=== PATIENT | female | born 1965 | race Caucasian/White ===

== ENCOUNTER → 2020-10-02 09:48 | Outpatient (BNVA) | payer OTHER, SELFPAY | PROVIDERS: Family Provider Family Medicine; PCP Nurse Practitioner Family; Visit Provider Internal Medicine | DX: M35.00 Sjogren syndrome, unspecified (principal); D72.819 Decreased white blood cell count, unspecified; R76.8 Other specified abnormal immunological findings in serum; Z11.1 Encounter for screening for respiratory tuberculosis; Z11.59 Encounter for screening for other viral diseases; R53.83 Other fatigue; G47.00 Insomnia, unspecified; F41.9 Anxiety disorder, unspecified; F48.8 Other specified nonpsychotic mental disorders; I73.9 Peripheral vascular disease, unspecified; F17.210 Nicotine dependence, cigarettes, uncomplicated | CPT/HCPCS: 99204 ==

== ENCOUNTER 2020-10-02 11:50 | Outpatient (CLI) | payer OTHER, BC, SELFPAY ==
--- NOTE | 2020-10-02 12:12 | XR_ITS ---
WS: [id number] Lumbar spine, 3 views, 10/02/2020 Clinical Data: M06.9 - Rheumatoid arthritis, unspecified Comparison: None. Findings: No compression fractures or subluxation is seen. No disc space narrowing is seen. The transverse proc esses and SI joints are normal. Minimal osteoarthritic spurring of the anterior vertebral bodies L1-L 5 is seen. There is a large amount of fecal material in the colon. There are clips in the left inguinal region f rom surgery. 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
--- NOTE | 2020-10-02 12:12 | XR_ITS ---
WS: [id number] Lateral views of cervical spine in the flexion, extension and neutral positions. 10/02/2020 Clinical Data: M06.9 - Rheumatoid arthritis, unspecified Comparison: None. Findings: No prevertebral soft tissue swelling is seen. The disc heights are normal. There are no compression f ractures. On flexion and extension there is no limitation of motion or subluxation. XR/XR cervical spine fl/ex [id number] Impression: Negative for limitation of motion or subluxation on flexion or extension.
--- NOTE | 2020-10-02 12:12 | XR_ITS ---
WS: [id number] Right hand, 2 views, 10/02/2020 Clinical Data: M06.9 - Rheumatoid arthritis, unspecified Comparison: None. Findings: No fractures or dislocations are seen. The soft tissues are unremarkable. The joint space s are normal No periarticular demineralization or calcifications are seen. XR/XR hand RT 2V [id number] Impression: Negative right hand.
--- NOTE | 2020-10-02 12:12 | XR_ITS ---
WS: [id number] Left hand, 3 views, 10/02/2020 Clinical Data: M06.9 - Rheumatoid arthritis, unspecified Comparison: None. Findings: No fractures or dislocations are seen. The soft tissues are unremarkable. The joint spaces are normal There is absence of the distal portion of the left fourth finger distal phalanx. The patient's ring o bscures minimal detail over the left fourth finger proximal phalanx. No periarticular demineralizatio n or calcifications are seen. XR/XR hand LT 2V 25126 Impression: 1. Negative for changes of rheumatoid arthritis. 2. 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
--- NOTE | 2020-10-02 12:12 | XR_ITS ---
WS: [id number] Thoracic spine, 3 views, 10/02/2020 Clinical Data: M06.9 - Rheumatoid arthritis, unspecified Comparison: None. Findings: No compression fractures are seen. The disc heights are normal. The paravertebral regions are normal. XR/XR thoracic spine 3V* [id number] Impression: Negative thoracic spine.
[2020-10-02 12:34] LABS: Add Urine Microscopic? NO
[2020-10-02 12:57] LABS: Bilirubin Urine Neg (Negative); Blood Urine Neg (Negative); Glucose Urine UA Norm (Normal); Ketones Urine Negative (Negative); Leukocyte Esterase Urine Negative (Negative); Nitrate Urine Negative (Negative); Protein Urine Neg (Negative); Urine Appearance Clear (CLEAR); Urine Color Yellow (Yellow); Urobilinogen Urine Norm (Negative); pH Urine 6.5 (5-7)
[2020-10-02 13:35] LABS: Basophils % 0.3 %; Eosinophils % 0.9 %; Hematocrit 39.4 % (37.0-47.0); Lymphocytes # 0.9 10^3/uL (0.8-4.8); Lymphocytes % 26.5 %; Mean Corpuscular Hemoglobin 30.2 pg (28.0-34.0); Mean Corpuscular Volume 91.4 fL (81-99); Mean Platelet Volume 10.3 fL (7.4-10.4); Monocytes # 0.2 10^3/uL (0.2-0.9); Monocytes % 4.4 %; Neutrophils # 2.32 10^3/uL (1.8-7.7); Neutrophils % 67.6 %; Nucleated Red Blood Cells % 0 %; Platelet Count 150 10^3/cmm (130-400); Red Blood Count 4.31 10^6/uL (4.1-5.3); Red Cell Distribution Width 13.2 % (12.1-15.1); White Blood Count 3.4 10^3/uL (4.0-10.0)
[2020-10-02 14:14] LABS: Alanine Aminotransferase 20 U/L (0-33); Alkaline Phosphatase 56 IU/L (35-105); Anion Gap 14.7 (5-19); Aspartate Amino Transferase 24 U/L (0-32); Blood Urea Nitrogen 8 mg/dL (6-20); C Reactive Protein 0.5 mg/L (0.0-4.9); Calcium 8.9 mg/dL (8.5-10.5); Carbon Dioxide 23 mmol/L (22-29); Chloride 103 mmol/L (98-107); Complement C3 95 mg/dL (90-180); Creatine Phosphokinase 53 U/L (26-192); Globulin 4.8 g/dL (1.3-4.6); Glomerular Filtration Rate 86.9 mL/min (90-130); Glucose 170 mg/dL (65-115); Magnesium 1.7 mg/dL (1.7-2.3); Osmolality Calculated 286 mOsm/kg (285-295); Phosphorus 3.2 mg/dL (2.5-4.5); Potassium 3.7 mmol/L (3.5-5.1); Sodium 137 mmol/L (136-145); Thyroid Stimulating Hormone 0.75 uIU/mL (0.27-4.20); Total Bilirubin 0.3 mg/dL (0.15-1.2); Total Protein 8.8 g/dL (6.6-8.7)
[2020-10-02 14:19] LABS: Cortisol Random 8.95 ug/dL (2.47-19.5); Hepatitis B Core AB, Total Non-Reactive (Nonreactive); Hepatitis B Surface Antigen Non-Reactive (Nonreactive)
[2020-10-02 14:39] LABS: Hepatitis C Virus Antibody Non-Reactive (Nonreactive)
[2020-10-02 14:52] LABS: Erythrocyte Sedimentation Rate 67 mm/hr (0-15)
[2020-10-02 20:45] LABS: 25 Hydroxy Vitamin D 19 ng/mL (30-100); Ferritin 136 ng/mL (15-150); Iron 63 ug/dL (37-145)
[2020-10-04 18:13] LABS: HLA-B27 NEGATIVE (NEGATIVE)
[2020-10-05 11:56] LABS: COMPLEMENT COMPONENT C3C 99 mg/dL (83-193); COMPLEMENT COMPONENT C4C 5 mg/dL (15-57)
[2020-10-05 12:57] LABS: COMPLEMENT, TOTAL (CH50) 29 U/mL (31-60); Quantiferon Mitogen 8.02 IU/mL; Quantiferon Nil 0.02 IU/mL; Quantiferon TB Gold NEGATIVE (NEGATIVE)
[2020-10-05 13:27] LABS: CENTROMERE B ANTIBODY <1.0 NEG AI (<1.0 NEG); JO-1 ANTIBODY <1.0 NEG AI (<1.0 NEG); RNP ANTIBODY 1.9 POS AI (<1.0 NEG); SCL-70 ANTIBODY <1.0 NEG AI (<1.0 NEG); SJOGREN'S ANTIBODY (SS-A) >8.0 POS AI (<1.0 NEG); SM ANTIBODY <1.0 NEG AI (<1.0 NEG); SS-B >8.0 POS AI (<1.0 NEG)
[2020-10-05 13:57] LABS: Cyclic Citrullinated Peptide <16 UNITS
[2020-10-06 14:56] LABS: THYROID PEROXIDASE ANTIBODIES 1 IU/mL (<9); Tissue Transglutaminase IgA Ab <1 U/mL; Tissue transglutaminase Ab.IgG 5 U/mL
[2020-10-07 00:08] LABS: Adrenocorticotropic Hormone 25 pg/mL (6-50)
[2020-10-07 13:24] LABS: ANA PATTERN Nuclear, Speckled; ANA SCREEN, IFA POSITIVE (NEGATIVE)
[2020-10-07 15:58] LABS: Gliadin Ab.IgA 8 U (<20); Gliadin Ab.IgG 3 U (<20)
[2020-10-07 22:32] LABS: DNA AB (DS) CRITHIDIA,IFA NEGATIVE (NEGATIVE)
[2020-10-11 01:43] LABS: Immunoglobulin A 383 mg/dL (47-310)
== END 2020-10-02 11:51 | disposition home or self-care (01) ==
PROVIDERS: PCP Nurse Practitioner Family; Visit Provider Internal Medicine
DX: M06.9 Rheumatoid arthritis, unspecified (principal); Z51.81 Encounter for therapeutic drug level monitoring; D86.9 Sarcoidosis, unspecified; M32.9 Systemic lupus erythematosus, unspecified; Z89.022 Acquired absence of left finger(s)
CPT/HCPCS: 36415; 72040; 72072; 72100; 73120; 80053; 81003; 82024; 82306; 82533; 82550; 82728; 82784; 83516; 83540; 83735; 84100; 84443; 85025; 85651; 86140; 86160; 86162; 86235; 86255; 86376; 86480; 86704; 86803; 86812; 87340

== ENCOUNTER → 2021-01-07 14:13 | Outpatient (BNVA) | payer OTHER, SELFPAY | PROVIDERS: PCP Nurse Practitioner Family; Visit Provider Internal Medicine | DX: R76.8 Other specified abnormal immunological findings in serum (principal); E55.9 Vitamin D deficiency, unspecified; F17.210 Nicotine dependence, cigarettes, uncomplicated | CPT/HCPCS: 99213 ==

== ENCOUNTER → 2021-05-11 10:27 | Outpatient (BNVA) | payer MEDICAID, SELFPAY | PROVIDERS: PCP Nurse Practitioner Family; Visit Provider Internal Medicine Rheumatology | DX: M05.79 Rheumatoid arthritis with rheumatoid factor of multiple sites without organ or systems involvement (principal); M35.00 Sjogren syndrome, unspecified; R76.8 Other specified abnormal immunological findings in serum; Z79.899 Other long term (current) drug therapy; Z71.89 Other specified counseling; F17.200 Nicotine dependence, unspecified, uncomplicated | CPT/HCPCS: 99214 ==

== ENCOUNTER → 2021-09-28 11:31 | Outpatient (BNVA) | payer MEDICAID, SELFPAY | PROVIDERS: PCP Nurse Practitioner Family; Visit Provider Internal Medicine Rheumatology | DX: M05.79 Rheumatoid arthritis with rheumatoid factor of multiple sites without organ or systems involvement (principal); M35.00 Sjogren syndrome, unspecified; R76.8 Other specified abnormal immunological findings in serum; Z79.899 Other long term (current) drug therapy; Z71.89 Other specified counseling; F17.200 Nicotine dependence, unspecified, uncomplicated | CPT/HCPCS: 99214 ==

== ENCOUNTER → 2022-01-26 10:31 | Outpatient (BNVA) | payer MEDICAID, SELFPAY | PROVIDERS: PCP Nurse Practitioner Family; Visit Provider Internal Medicine Rheumatology | DX: M05.79 Rheumatoid arthritis with rheumatoid factor of multiple sites without organ or systems involvement (principal); M35.00 Sjogren syndrome, unspecified; Z79.899 Other long term (current) drug therapy; R76.8 Other specified abnormal immunological findings in serum; Z71.89 Other specified counseling | CPT/HCPCS: 80076; 82565; 84439; 84443; 85007; 85025; 86140; 99214 ==

== ENCOUNTER 2022-02-23 14:10 | Outpatient (CLI) | payer MEDICAID, SELFPAY ==
--- NOTE | 2022-02-23 15:00 | US_ITS ---
WS: [id number] THYROID ULTRASOUND HISTORY: M35.00 - Sjogren syndrome, unspecified COMPARISON: None available. Right lobe: 1.6 cm x 1.5 cm x 5.4 cm (w x ap x l). Volume: 6.7 cm3. Normal size and echotexture. No significant are dominant nodules are present. Left lobe: 1.6 cm x 1.8 cm x 4.5 cm (w x ap x l). Volume: 6.6 cm3. Normal size thyroid. Very minimal heterogeneity in the upper pole. Benign cysts with a maximum diamet er 4 mm in the mid thyroid. No solid nodules. No area of increased vascularity. Isthmus: 0.2 cm. US/US thyroid [id number] IMPRESSION: 1. No suspicious thyroid nodules or masses. 2. Small colloid cyst LEFT thyroid.
== END 2022-02-23 14:11 | disposition home or self-care (01) ==
LOC: RAD 14:10
PROVIDERS: PCP Nurse Practitioner Family; Visit Provider Internal Medicine Rheumatology
DX: M05.79 Rheumatoid arthritis with rheumatoid factor of multiple sites without organ or systems involvement (principal); M35.00 Sjogren syndrome, unspecified; Z79.899 Other long term (current) drug therapy
CPT/HCPCS: 76536

== ENCOUNTER → 2022-05-11 13:19 | Outpatient (BNVA) | payer MEDICAID, SELFPAY | PROVIDERS: PCP Nurse Practitioner Family; Visit Provider Internal Medicine Rheumatology | DX: M05.79 Rheumatoid arthritis with rheumatoid factor of multiple sites without organ or systems involvement (principal); M35.00 Sjogren syndrome, unspecified; Z79.899 Other long term (current) drug therapy; R76.8 Other specified abnormal immunological findings in serum; Z71.89 Other specified counseling | CPT/HCPCS: 80076; 82306; 82565; 84439; 84443; 85025; 85651; 86140; 99214 ==

== ENCOUNTER → 2022-08-08 09:27 | Outpatient (BNVA) | payer MEDICAID, SELFPAY | PROVIDERS: PCP Nurse Practitioner Family; Visit Provider Otolaryngology | DX: H91.93 Unspecified hearing loss, bilateral (principal); H93.13 Tinnitus, bilateral; M26.621 Arthralgia of right temporomandibular joint; M35.00 Sjogren syndrome, unspecified; R76.8 Other specified abnormal immunological findings in serum; M05.79 Rheumatoid arthritis with rheumatoid factor of multiple sites without organ or systems involvement; M19.90 Unspecified osteoarthritis, unspecified site; Z79.899 Other long term (current) drug therapy | CPT/HCPCS: 36415; 80076; 82565; 85025; 86140; 99203 ==

== ENCOUNTER → 2022-10-05 14:13 | Outpatient (BNVA) | payer MEDICAID, SELFPAY | PROVIDERS: PCP Nurse Practitioner Family; Visit Provider Otolaryngology | DX: H91.93 Unspecified hearing loss, bilateral (principal); H93.13 Tinnitus, bilateral; M26.629 Arthralgia of temporomandibular joint, unspecified side | CPT/HCPCS: 99213 ==

== ENCOUNTER 2022-11-02 09:56 | Outpatient (CLI) | payer MEDICAID, SELFPAY ==
--- NOTE | 2022-11-02 11:00 | MR_ITS ---
WS: [id number] MRI HEAD WITH CONTRAST WITH ATTENTION TO THE INTERNAL AUDITORY CANALS TECHNIQUE: Sagittal T1, T2 axial, T2 axial flair, axial susceptibility weighted imaging, axial diffus ion weighted images, and coronal T2 images were obtained. Pre and post T1 axial and post T1 coronal i mages. ADC and FSPGR images. Post gadolinium images with attention to the internal auditory canals. A xial fiesta imaging. CLINICAL INFORMATION: hearing loss/hearing test scanned in chart COMPARISON: None. FINDINGS: No evidence of restricted diffusion to suggest acute ischemia. Ventricular system and basal cisterns are patent. Mild small vessel changes. Moderate parenchymal volume loss. Normal posterior fossa. Norm al vascular flow voids at the skull base. No extra-axial fluid collections. No evidence of mass or ma ss effect. Paranasal sinuses and mastoid air cells well aerated. No hemosiderin on the susceptibility weighted images. Proximal 7th and 8th cranial nerves are normal in appearance. Normal trigeminal nerve root entry zone s. Normal posterior fossa. Normal vascular flow voids at the skull base. No extra-axial fluid collect ions. No evidence of mass or mass effect. Paranasal sinuses are well aerated. Normal posterior nasoph arynx. Normal parapharyngeal fat. No evidence of enhancing IAC or CP angle mass. No abnormal gadolinium enhancement. Normal dural venou s sinuses. Normal optic chiasm and pituitary infundibulum. Normal cavernous sinuses and Meckel's cave . MR/MR iac's wo/w con* [id number] IMPRESSION: 1. No evidence of restricted diffusion to suggest acute ischemia. 2. Mild small vessel changes with moderate parenchymal volume loss. 3. No evidence of enhancing IAC or CP angle mass. Normal trigeminal nerve root entry zones. 4. Paranasal sinuses and mastoid air cells are well aerated. 5. No abnormal intracranial enhancement. Normal dural venous sinuses.
[2022-11-02] MEDS: gadobenate dimeglumine 20 mL vial IV (11:59)
== END 2022-11-02 09:57 | disposition home or self-care (01) ==
LOC: RAD 09:58
PROVIDERS: PCP Nurse Practitioner Family; Visit Provider Otolaryngology
DX: H91.90 Unspecified hearing loss, unspecified ear (principal)
CPT/HCPCS: 70553; A9577

== ENCOUNTER → 2022-11-08 11:01 | Outpatient (BNVA) | payer MEDICAID, SELFPAY | PROVIDERS: PCP Nurse Practitioner Family; Visit Provider Internal Medicine Rheumatology | DX: M05.79 Rheumatoid arthritis with rheumatoid factor of multiple sites without organ or systems involvement (principal); Z79.899 Other long term (current) drug therapy; M35.00 Sjogren syndrome, unspecified; R76.8 Other specified abnormal immunological findings in serum; Z71.89 Other specified counseling | CPT/HCPCS: 36415; 80076; 82565; 85007; 85025; 86140; 99214 ==

== ENCOUNTER → 2022-11-08 11:01 | Outpatient (BNVA) | payer MEDICAID, SELFPAY | PROVIDERS: PCP Nurse Practitioner Family; Visit Provider Otolaryngology | DX: R13.10 Dysphagia, unspecified (principal); H91.93 Unspecified hearing loss, bilateral; H93.13 Tinnitus, bilateral; M05.79 Rheumatoid arthritis with rheumatoid factor of multiple sites without organ or systems involvement; Z79.899 Other long term (current) drug therapy | CPT/HCPCS: 31575; 99214 ==

== ENCOUNTER → 2023-02-28 12:41 | Outpatient (BNVA) | payer MEDICAID, SELFPAY | PROVIDERS: PCP Nurse Practitioner Family; Visit Provider Internal Medicine Rheumatology | DX: M05.79 Rheumatoid arthritis with rheumatoid factor of multiple sites without organ or systems involvement (principal); M35.00 Sjogren syndrome, unspecified; R76.8 Other specified abnormal immunological findings in serum; Z71.89 Other specified counseling; Z79.899 Other long term (current) drug therapy | CPT/HCPCS: 99214 ==

== ENCOUNTER → 2023-05-30 12:55 | Outpatient (BNVA) | payer MEDICAID, SELFPAY | PROVIDERS: PCP Nurse Practitioner Family; Visit Provider Internal Medicine Rheumatology | DX: Z79.899 Other long term (current) drug therapy (principal); M35.00 Sjogren syndrome, unspecified; M05.79 Rheumatoid arthritis with rheumatoid factor of multiple sites without organ or systems involvement; R76.8 Other specified abnormal immunological findings in serum; Z71.89 Other specified counseling | CPT/HCPCS: 36415; 80061; 80076; 82565; 85025; 86140; 99214 ==

== ENCOUNTER → 2023-09-26 13:11 | Outpatient (BNVA) | payer MEDICARE, SELFPAY | PROVIDERS: PCP Nurse Practitioner Family; Visit Provider Internal Medicine Rheumatology | DX: M35.00 Sjogren syndrome, unspecified (principal); M05.79 Rheumatoid arthritis with rheumatoid factor of multiple sites without organ or systems involvement; Z79.899 Other long term (current) drug therapy; R76.8 Other specified abnormal immunological findings in serum; Z71.89 Other specified counseling | CPT/HCPCS: 36415; 80076; 82565; 85025; 85651; 86140; 99214 ==

== ENCOUNTER 2024-11-15 08:34 | Outpatient (CLI) | payer MEDICARE, SELFPAY ==
--- NOTE | 2024-11-15 08:38 | FL_ITS ---
WS: [id number] Exam: FL barium swallow [id number] Date/Time of Exam: 11/15/2024 9:07 AM Reason For Exam: [id number], PHARYNGOESOPHAGEAL Fluoroscopy time: 2min [id number] minutes # of spot films: 7 Oropharyngeal phase of swallowing was normal. The esophagus is smooth in contour with normal motility. No sign of intrinsic esophageal mass or stricture. No hiatal hernia or gastroesophageal reflux. The esophagus was not displaced. FL/FL barium swallow [id number] IMPRESSION: 1. Unremarkable barium swallow.
== END 2024-11-15 08:35 | disposition home or self-care (01) ==
LOC: RAD 08:36
PROVIDERS: PCP Internal Medicine; Visit Provider Otolaryngology
DX: R13.14 Dysphagia, pharyngoesophageal phase (principal)
CPT/HCPCS: 74220

== ENCOUNTER 2024-11-27 12:58 | Outpatient (CLI) | payer MEDICARE, SELFPAY | END 2024-11-27 12:59 | disposition home or self-care (01) | PROVIDERS: PCP Internal Medicine; Visit Provider Internal Medicine | DX: M05.79 Rheumatoid arthritis with rheumatoid factor of multiple sites without organ or systems involvement (principal); M35.00 Sjogren syndrome, unspecified; R76.8 Other specified abnormal immunological findings in serum; Z79.899 Other long term (current) drug therapy; Z71.89 Other specified counseling; R53.82 Chronic fatigue, unspecified; E55.9 Vitamin D deficiency, unspecified | CPT/HCPCS: 36415; 80076; 82306; 82565; 84443; 85025; 86140; 99214 ==